=== PATIENT | male | born 1985 | race Caucasian/White ===

== ENCOUNTER 2017-08-24 19:38 | Emergency (ER) | payer SELFPAY ==
[2017-08-24] MEDS ORDERED: Ketorolac Tromethamine 30 MG/ML VIAL ONE (20:00)
[2017-08-24 20:03] LABS: #Eosinphils 0.4 thou/uL (0.0-0.7); #Lymphocytes 2.5 thou/uL (1.20-3.40); #Monocytes 0.8 thou/uL (0.11-0.59); #Neutrophils 6.2 thou/uL (1.40-6.50); %Basophils 0.4 % (0.0-1.0); %Eosinophils 3.8 % (0.0-10.0); %Lymphocytes 24.8 % (21.0-51.0); %Monocytes 7.8 % (0.0-10.0); Hematocrit 42.7 % (42.0-52.0); Mean Platelet Volume 7.6 fL (7.4-10.4); White Blood Cell (WBC) Count 9.9 thou/uL (4.8-10.8)
--- NOTE | 2017-08-24 20:09 | RAD ---
EXAM: ONE VIEW CHEST 08/24/17 COMPARISON: 10/26/11. HISTORY: Injury. Trauma. COMPARISON: None. FINDINGS: Portable upright chest demonstrates a normal cardiac silhouette. Pulmonary vessels and hilum are nor mal. No masses or consolidation. No pneumothorax or osseous abnormalities. IMPRESSION: No acute cardiopulmonary process. POS: [facility]
[2017-08-24 20:10] LABS: PTT 27.1 SEC (22.9-36.1); Prothrombin Time 13.9 SEC (12.0-14.7)
--- NOTE | 2017-08-24 20:12 | RAD ---
EXAM: ONE VIEW PELVIS 08/24/17 HISTORY: Injury. COMPARISON: 04/28/08 FINDINGS: One view pelvis. Bony pelvis is intact. Sacral ala is preserved. Contour of the left and right femor al head are maintained. The hip joint spaces are essentially symmetric. IMPRESSION: No posttraumatic sequela. POS: [facility]
[2017-08-24 20:13] LABS: Bilirubin Negative (Negative); Blood, Urine Negative (Negative); Glucose, Urine (Dipstick) Negative (Negative); Ketone, Urine Negative (Negative); Nitrite Negative (Negative); Protein, Urine (Dipstick) Negative (Neg-Trace); Urobilinogen 0.2 mg/dL (0.2-1.0)
[2017-08-24 20:27] LABS: ALT (SGPT) 42 U/L (8-55); AST (SGOT) 32 U/L (5-34); Alkaline Phosphatase 69 U/L (40-150); Anion Gap 13 mmol/L (10-20); BUN (Urea Nitrogen) 23 mg/dL (8.9-20.6); Bilirubin, Total 0.2 mg/dL (0.2-1.2); Calc. Creatinine Clearance 0 mL/min (70-130); Calcium 9.6 mg/dL (7.8-10.44); Carbon Dioxide 29 mmol/L (22-29); Chloride 103 mmol/L (98-107); Estimated GFR-MDRD Greater than 90; Globulin 3.2 g/dL (2.4-3.5); Protein, Total 7.4 g/dL (6.0-8.3)
--- NOTE | 2017-08-24 21:07 | RAD ---
EXAM: LUMBAR SPINE THREE VIEWS 08/24/17 COMPARISON: 04/28/08. HISTORY: Patient from a tree, hitting branches. Low back pain. FINDINGS: Straightening of the normal lumbar lordosis. Lumbar spine vertebral body height is maintained. No fr acture. No spondylolisthesis or spondylolysis. Note, there are five lumbar type vertebral bodies. IMPRESSION: No fracture. POS: [facility]
== END 2017-08-24 22:00 | disposition home or self-care (01) ==
LOC: ERS 19:38
DX: S30.0XXA Contusion of lower back and pelvis, initial encounter (principal); S30.810A Abrasion of lower back and pelvis, initial encounter; S70.311A Abrasion, right thigh, initial encounter; F31.9 Bipolar disorder, unspecified; F41.9 Anxiety disorder, unspecified; F17.210 Nicotine dependence, cigarettes, uncomplicated; W14.XXXA Fall from tree, initial encounter
CPT/HCPCS: 71010; 72100; 72170; 80053; 81003; 85025; 85610; 85730; 96374; J1885